=== PATIENT | male | born 1985 ===

== ENCOUNTER 2018-12-05 22:56 | Emergency (ER) | payer OTHER ==
[~2018-12-05] VITALS: Ht 185.4 cm; Wt 127.0 kg
[~2018-12-05 22:56] MED LIST: FLONASE16 GM NS; ZYRTEC10 MG PO
[2018-12-06] MEDS ORDERED: CEFUROXIME500 MG PO ×2 (04:31→04:33)
[2018-12-06] MEDS ORDERED: GILTUSS TR TAB1 EACH PO ×2 (04:32→04:33)
[2018-12-06] MEDS ORDERED: FLONASE16 GM NASAL ×2 (04:35→04:36)
[2018-12-06] MEDS ORDERED: KETO10TA2 PO ×2 (04:35→04:36)
== END 2018-12-06 04:43 | disposition home or self-care (01) ==
LOC: ER 22:56
DX: G50.1 Atypical facial pain (principal); J32.8 Other chronic sinusitis

== ENCOUNTER 2019-05-20 20:12 | Emergency (ER) | payer OTHER ==
[~2019-05-20] VITALS: Ht 175.3 cm; Wt 127.0 kg
[~2019-05-20 20:12] MED LIST changes: +CEFUROXIME500 MG PO; +FLONASE16 GM NASAL; +GILTUSS TR TAB1 EACH PO; +KETO10TA2 PO
[2019-05-21] MEDS ORDERED: KETO10TA2 PO (01:51)
[2019-05-21] MEDS ORDERED: NORFLEX100MG PO (01:51)
[2019-05-21] MEDS ORDERED: MEDROL8 MG PO (01:51)
== END 2019-05-21 01:59 ==
LOC: ER 20:12
DX: M54.89 Other dorsalgia (principal); M51.26 Other intervertebral disc displacement, lumbar region